=== PATIENT | male | born 1945 | race Caucasian/White ===

== ENCOUNTER 2025-06-10 17:09 | Emergency (ER) | payer MEDICARE, SELFPAY ==
--- OUTSIDE RECORDS SUMMARY | 2025-06-07 09:45 | XMS_ITS | Encounter Summary ---
Author Organization [facility] Address [address] [place] [address] Care Team Providers Care Paving Inspector Name Role Phone Gaurav Valadez MD Primary Care Provider [phone] Reason for Visit * Reason Comments Follow-up Flu Vaccine Encounter Details Date Type Department Care Team (Latest Contact Info) Description 06/07/2025 9:45 AM EST Office Visit Internal Medicine - [place] [address] [facility] [address] [place] [phone] Gaurav Valadez MD 175 [facility] [address] [place] [address] Acquired hypothyroidism (Primary Dx); Stage 2 moderate COPD by GOLD classification (CMS/HCC V24, CMS/HCC V28); Major depression in remission (CMS/HCC V24); Hypercholesterolemia; Need for prophylactic vaccination and inoculation against influenza Social History Tobacco Use Types Packs/Day Years Used Date Smoking Tobacco: Former Cigarettes 1 Q uit: 06/29/1969 Smokeless Tobacco: Never Alcohol Use Standard Drinks/Week Comments Yes 0 (1 standard drink = 0.6 oz pur e alcohol) occasional Sex and Gender Information Value Date Recorded Sex Assigned at Male 02/08/2023 8:46 PM EDT Legal Sex Male 1:26 PM EST Gender Identity Male 02/08/2023 8:46 PM EDT Sexual Orientation Straight 09/21/2024 9: 56 AM EDT documented as of this encounter Last Filed Vital Signs Vital Sign Reading Time Taken Comments Blood Pressure 89/58 06/07/2025 9:40 AM EST Pulse 65 06/07/2025 9:40 AM EST Temperature 35.8 C (96.5 F) 06/07/2025 9:40 AM EST Respiratory Rate - - Oxygen Saturation 95% 06/07/2025 9:40 AM EST Inhaled Oxygen Concentration - - Weight 80.8 kg (178 lb 3.2 oz) 06/07/2025 9:40 A M EST Height 162.6 cm (5' 4 ) 06/07/2025 9:40 AM EST Body Mass Index 30.59 06/07/2025 9:40 AM EST documented in this encounter Ordered Prescriptions Prescription Sig Dispense Quantity Refills Last Filled Start Date End Date clotrimazole-betame thasone (LOTRISONE) 1-0.05 % cream Apply twice a day on the rash for 7 days 45 g 3 06/07/2025 documented in this encounter Progress Notes * Gaurav Valadez MD - 06/07/2025 9:45 AM EST COMPLAINT medication review and testing. IDENTIFIER: Darius Stewart is a 80 y.o. old male. HPI: Hyperlipidemia stable. Hypothyroidism is stable. COPD is under control .anxiety stable. ROS: GENERAL: No malaise, significant weight loss or fever RESPIRATORY: No cough, wheezing or shortness of breath CARDIOVASCULAR: No chest pain, leg swelling or palpitations GI: No abdominal discomfort, blood in stools or black stools PAST MEDICAL HISTORY: Patient Active Problem List Diagnosis Date Noted Shortness of breath 12/17/2021 Heart block 06/25/2021 Dizziness 06/25/2021 Non-recurrent unilateral inguinal hernia without obstruction or gangrene 03/14/2020 Testicular pain, right 03/14/2020 Pure hypercholesterolemia 01/12/2019 Stage 2 moderate COPD by GOLD classification ([facility] V24, [facility] V28) 04/16/2018 Hypoxia 04/16/2018 Former smoker 04/16/2018 Pulmonary fibrosis ([facility] V24, [facility] V28) 04/16/2018 ILD (interstitial lung disease) ([facility] V24, [facility] V28) 04/16/2018 Paraseptal emphysema ([facility] V24, [facility] V28) 04/16/2018 Centrilobular emphysema ([facility] V24, [facility] V28) 04/16/2018 Cataract 03/03/2017 Seasonal allergic rhinitis 01/12/2017 Hypothyroidism 11/20/2016 Major depression in remission ([facility] V24) 11/20/2016 Osteoarthritis 11/20/2016 GERD (gastroesophageal reflux disease) 07/29/2016 Surgical History[1] SOCIAL HISTORY: Social History Tobacco Use Smoking status: Former Current packs/day: 0.00 Average packs/day: 1.0 packs/day Types: Cigarettes Quit date: 06/29/1969 Years since quittin.9 Smokeless tobacco: Never Substance Use Topics Alcohol use: Yes Comment: occasional FAMILY HISTORY: Family History[2] MEDICATIONS DISCONTINUED/REORDERED: There are no discontinued medications. ACTIVE MEDICATIONS: Medications Taking[3] ALLERGIES: Allergies[4] PHYSICAL EXAM: Vitals: 06/07/25 0940 BP: 89/58 Pulse: 65 Temp: 35.8 ??C (96.5 ??F) SpO2: 95% APPEARANCE: Alert and in no acute distress EARS: External ears normal. HEART: RRR with normal S1 and S2, no murmurs LUNG: clear to auscultation LABS: Lab Results Component Value Date WBC 10.6 01/24/2025 HGB 13.9 01/24/2025 HCT 42.7 01/24/2025 MCV 92.6 01/24/2025 Lab Results Component Value Date NA 143 12/02/2024 K 3.9 12/02/2024 CO2 25 12/02/2024 CL 110 12/02/2024 BUN 20 12/02/2024 ALKPHOS 67 12/02/2024 Lab Results Component Value Date TSH 0.41 01/24/2025 Lab Results Component Value Date CHOL 122 12/02/2024 LDL 42 10/21/2023 HDL 68 12/02/2024 TRIG 148 12/02/2024 No components found for: URINELEUK , URINENITR , URINEPRO , URINEPH , URINEBLD , URINESG , URINEKET , URINEBILI , URINEGLUC IMAGING: IMPRESSION: 1. Acquired hypothyroidism CBC and differential Comprehensive metabolic panel Lipid panel with reflex to direct LDL Thyroid stimulating hormone 2. Stage 2 moderate COPD by GOLD classification ([facility] V24, [facility] V28) CBC and differential Comprehensive metabolic panel Lipid panel with reflex to direct LDL Thyroid stimulating hormone 3. Major depression in remission ([facility] V24) CBC and differential Comprehensive metabolic panel Lipid panel with reflex to direct LDL Thyroid stimulating hormone 4. Hypercholesterolemia CBC and differential Comprehensive metabolic panel Lipid panel with reflex to direct LDL Thyroid stimulating hormone 5. Need for prophylactic vaccination and inoculation against influenza CBC and differential Comprehensive metabolic panel Lipid panel with reflex to direct LDL Thyroid stimulating hormone Influenza trivalent, 0.5mL (Fluad) 65yo and older PLAN: Hyperlipidemia stable on Lipitor. COPD stable on Breo inhaler. Hypothyroidism, stable. Anxiety stable on Zoloft. [1] Past Surgical History: Procedure Laterality Date COLONOSCOPY PROCEDURE: HISTORICAL COLONOSCOPY [2] No family history on file. [3] Outpatient Medications Marked as Taking for the 06/07/25 encounter (Office Visit) with Gaurav Valadez MD Medication Sig Dispense Refill aspirin 81 mg chewable tablet TAKE ONE TABLET BY MOUTH EVERY DAY 90 tablet 3 atorvastatin (LIPITOR) 40 mg tablet Take 1 tablet (40 mg total) by mouth 1 (one) time each day. [address] (ENTOCORT EC) 3 mg 24 hr capsule Take 3 mg by mouth daily. Take 3 tablets for one month, then take 2 tablets daily for one month and then take one tablet daily for one month cimetidine (TAGAMET) 400 mg tablet Take 1 tablet (400 mg total) by mouth. fluticasone furoate-vilanteroL (BREO ELLIPTA) 100-25 mcg/dose inhaler Inhale 1 puff by mouth 1 (one) time each day. 1 each 11 ibuprofen (ADVIL,MOTRIN) 600 mg tablet Take 1 tablet (600 mg total) by mouth every 6 (six) hours ifneeded for mild pain. 30 tablet 1 ipratropium-albuteroL (Combivent Respimat) 20-100 mcg/actuation inhaler Inhale 1 puff by mouth every 6 (six) hours if needed for wheezing. 1 each 5 levothyroxine (SYNTHROID, LEVOTHROID) 137 mcg tablet Take 1 tablet (137 mcg total) by mouth 1 (one)time each day. 90 tablet 1 multivitamin with iron Take 1 tablet by mouth 1 (one) time each day. senna-docusate (PERICOLACE) 8.6-50 mg per tablet Take 1 tablet by mouth 1 (one) time each day. 30 each 11 sertraline (ZOLOFT) 25 mg tablet Take 2 tablets (50 mg total) by mouth 1 (one) time each day. 60 tablet 1 [4] No Known Allergies documented in this encounter Plan of Treatment Upcoming Encounters Date Type Department Care Team (Late st Contact Info) Description 07/27/2025 9:30 AM EST Office Visit Pulmonology - [place] 175 [facility] [address] [place] [phone] Wilder Perea MD [address] [place] [phone] 08/17/2025 8:00 AM EST Ancillary Procedure [facility] Cardiology [facility] [address] [facility] [address] [place] [phone] 12/06/2025 9:30 AM EDT Office Visit Internal Medicine - [place] 175 [facility] [address] [place] [phone] Gaurav Valadez MD 175 [facility] [address] [place] [address] 12/07/2025 10:00 AM EDT Office Visit Vascular Surgery - [place] 300 [facility] [address] [place] [phone] Vania Vail PA [address] [place] [phone] 05/03/2026 11:00 AM EST Ancillary Procedure [facility] Cardiology [facility] [address] [facility] [address] [place] [phone] Scheduled Orders Name Type Priority Associated Diagnoses Orde r Schedule CBC and differential Lab Routine Stage 2 moderate COPD by GOLD classification (CMS/HCC V24, CMS/HCC V28) Acquired hypothyroidism Major depression in remission (CMS/HCC V24) Hypercholesterolemia Need for prophylactic vaccination and inoculation against influenza 1 Occurrences starting 06/07/2025 until 06/07/2026 Comprehensive metabolic panel Lab Routine Stage 2 moderate COPD by GOLD classification (CMS/HCC V24, CMS/HCC V28) Acquired hypothyroidism Major depression in remission ([facility] V24) Hypercholesterolemia Need for prophylactic vaccination and inoculation against influenza 1 Occurrences starting 06/07/2025 until 06/07/2026 Lipid panel with reflex to direct LDL Lab Routine Stage 2 moderate COPD by GOLD classification ([facility] V24, [facility] V28) Acquired hypothyroidism Major depression in remission ([facility] V24) Hypercholesterolemia Need for prophylactic vaccination and inoculation against influenza 1 Occurrences starting 06/07/2025 until 06/07/2026 Thyroid stimulating hormone Lab Routine Stage 2 moderate COPD by GOLD classification ([facility] V24, [facility] V28) Acquired hypothyroidism Major depression in remission ([facility] V24) Hypercholesterolemia Need for prophylactic vaccination and inoculation against influenza 1 Occurrences starting 06/07/2025 until 06/07/2026 documented as of this encounter Visit Diagnoses Diagnosis Acquired hypothyroidism- Primary Unspecified hypothyroidism Stage 2 moderate COPD by GOLD classification ([facility] V24, [facility] V28) Major depression in remission ([facility] V24) Major depressive disorder, single episode in full remission Hypercholesterolemia Pure hypercholesterolemia Need for prophylactic vaccination and inoculation against influenza Encounter for adjustment or management of cardiac device documented in this encounter Orders Immunization/Injection Count Last Ordered Date First Ordered Date INFLUENZA TRIVALENT, 0.5ML ( FLUAD) 65YO AND OLDER 1 06/07/2025 documented in this encounter Additional Health Concerns Assessment Noted Time PHQ-9 Depression Total Score: 0 12/03/19 25 11:26 AM EDT A fall risk assessment has been complete d for the patient 12/02/2024 11:23 AM EDT documented as of this encounter Care Teams Paving Inspector Relationship Specialty Start Date End Date Gaurav Valadez MD [address] [place] [id number] PCP - General Internal Medicine 04/16/18 documented as of this encounter
--- OUTSIDE RECORDS SUMMARY | 2025-06-08 11:30 | XMS_ITS | Encounter Summary ---
Author Organization [facility] Address [address] [place] [address] Care Team Providers Care Double Reamer Operator Name Role Phone Gaurav Valadez MD Primary Care Provider [phone] Reason for Referral * Imaging (Routine) - Pending Review Specialty Diagnoses / Procedures Referred By Tory garcia Referred To Contact Diagnoses Claudication (CMS/HCC V24) Procedures Vascular US duplex lower extremity arteries bilateral with MARY Vania Vail PA [address] [place] [address] Phone: tel: fax: [facility] Referral ID Status Reason Start Date Expiration Date V isits Requested Visits Authorized [id number] Pending Review 06/08/2025 06/08/2026 1 1 Reason for Visit * Reason Comments Varicose Veins Encounter Details Date Type Department Care Team (Late st Contact Info) Description 06/08/2025 11:30 AM EST Office Visit Vascular Surgery - [place] [address] [place] [address] Vania Vail PA [address] [place] [address] Varicose veins of bilateral lower extremities with pain (Primary Dx); Claudication (CMS/HCC V24) Social History Tobacco Use Types Packs/Day Years [...] Sign Reading Time Taken Comments Blood Pressure 120/80 06/08/2025 11:18 AM EST Pulse 92 06/08/2025 11:18 AM EST Temperature - - Respiratory Rate 16 06/08/2025 11:18 AM EST Oxygen Saturation - - Inhaled Oxygen Concentration - - Weight 82.6 kg (182 lb) 06/08/2025 11:18 AM EST Height 162.6 cm (5' 4 ) 06/08/2025 11:18 AM EST Body Mass Index 31.24 06/08/2025 11:18 AM EST documented in this encounter Progress Notes * NILE Chappell - 06/08/2025 11:30 AM EST PATIENT: Francisco Javier Stewart ENCOUNTER: 06/08/2025 EMRN: [id number] : 1945 PCP: Gaurav Valadez MD CHIEF COMPLAINT: Varicose Veins HPI: This 80 y.o. male with history of COPD/ILD/pulmonary fibrosis, hypothyroidism, heart block s/p pacemaker placement, former smoker presents for follow up varicose veins. 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 Most recent carotid duplex from 2023 revealed no hemodynamically significant stenosis. Patient was last seen in August 2024. He has varicose veins on bilateral legs. No swelling. No history of venous ulcers. He has a history of chronic back pain and remote history of lumbar spine surgery. He is on aspirin and a statin. He is a former smoker. Patient is here today to review venous reflux studies. Patient was prescribed compression stockingsat previous visit, however he has been unable to get the stockings on and finds them too tight. He was given a different pair by his 's friend that seem to work better. He reports that when he goes up stairs or walks at an incline, his legs become very fatigued. He denies any pain within the thigh or calf. Symptoms do not occur on flat surface. He denies pain in toes at rest, ulcers or gangrene. PAST MEDICAL HISTORY: Problem List[1] PAST SURGICAL HISTORY: Surgical History[2] MEDICATIONS: Medications Taking[3] ALLERGIES: Current Allergies[4] SOCIAL HISTORY: Social History[5] FAMILY HISTORY: Family History[6] ROS: GENERAL: No malaise, significant weight loss or fever NECK: No lumps, goiter, pain or significant neck swelling RESPIRATORY: No cough, wheezing or shortness of breath CARDIAC: No chest pain or palpitations GI: No abdominal discomfort MUSCULOSKELETAL: SEE HPI SKIN: No lesions, rash or itching NEURO: No persistent headache, syncope, seizures, weakness or numbness VASCULAR: SEE HPI PHYSICAL EXAM: Vitals: 06/08/25 1118 BP: 120/80 Pulse: 92 Resp: 16 Weight: 82.6 kg (182 lb) Height: 1.626 m (64 ) General: Alert and oriented x 3, no acute distress, well-nourished HEENT: Normocephalic atraumatic Neck: No JVD Chest: Respiratory effort normal Cardiac: Regular rate rhythm Abdomen: Soft, nontender, nondistended, no widened aortic pulse Extremities: -Right upper extremity: 2+ radial artery pulses palpable. -Left upper extremity: 2+ radial artery pulses palpable. -Right lower extremity: Femoral artery pulse palpable. No palpable popliteal artery pulse. 1+ DP pulse palpable. No PT pulse palpable. No ulcers or gangrene. Varicosities present on calf. No hyperpigmentation. No induration or inflammation. No edema. -Left lower extremity: Femoral artery pulse palpable. No palpable popliteal artery pulse. 1+ DP pulse palpable. No PT pulse palpable. No ulcers or gangrene. Varicosities present on calf. No hyperpigmentation. No induration or inflammation. No edema. Integumentary: No wounds Neuro: Grossly intact DIAGNOSTIC TESTING: Bilateral lower extremity venous reflux, 05/16/25: RIGHT: 1. There is no evidence of a DVT in the right lower extremity 2. The femoral vein, and SSV are competent 3. The GSV has clinically significant reflux as described below. 4. There is a branch of the GSV with clinically significant refluxis described below 5. There is evidence of nonsignificant reflux in the popliteal vein as described below. 6. Incidental finding: There is evidence of an avascular structure in the right popliteal fossa measuring 3.42 x 0.90 x 3.09cm, suggestive of a Garrido's cyst. LEFT: 1. There is no evidence of a DVT in the left lower extremity. 2. The SFJ, and SSV are competent 3. There are multiple branches of the GSV with clinically significant reflux as described below. 4. There is evidence of nonsignificant reflux in the femoral vein and popliteal vein. Result History Order Result History Report Procedure Details A amaya scale, color and doppler analysis ultrasound was performed. During the study longitudinal and transverse views were obtained. Pulsed wave doppler was performed. Lower Venous Extremity Findings Right Lower Venous No evidence of deep vein thrombosis in the common femoral, deep femoral, proximal femoral, mid femoral, distal femoral, popliteal, greater saphenous, small saphenous, posterior tibial and peroneal veins of the right leg. The vessels showed compressibility. Interrogation showed phasic and spontaneous Doppler signals. There is evidence of a Garrido's cyst in the popliteal fossa measuring 3.42 x 0.90 x 3.09cm. Right Venous Insufficiency Duplex The exam was performed with the patient in reverse Trendelenburg. Refluxing right greater saphenous branch: 0.26cm diameter lower thigh= 4400ms Left Lower Venous No evidence of deep vein thrombosis in the common femoral, deep femoral, proximal femoral, mid femoral, distal femoral, popliteal, greater saphenous, posterior tibial and peroneal veins of the left leg. The vessels showed compressibility. Interrogation showed phasic and spontaneous Doppler signals. Small saphenous vein was not visualized. Left Venous Insufficiency Duplex The exam was performed with the patient in reverse trendelenburg. Refluxing left greater saphenous branches: 0.29cm diameter mid thigh= 4280ms 0.26cm diameter lower thigh= 4330ms Right Lower Venous Measurements Vein Diam Reflux Time GSV Junction 0.53 cm 4,378 ms GSV Thigh Prox 0.38 cm 4,361 ms GSV Thigh Mid 0.37 cm 4,395 ms GSV At Knee 0.3 cm 322 ms GSV Below Knee Prox 0.23 cm GSV Below Knee Dist 0.18 cm SSV Prox 0.13 cm SSV Mid 0.1 cm Pop 578 ms Left Lower Venous Measurements Vein Diam Reflux Time GSV Junction 0.44 cm GSV Thigh Prox 0.4 cm GSV Thigh Mid 0.29 cm GSV At Knee 0.21 cm GSV Below Knee Prox 0.13 cm GSV Below Knee Dist 0.15 cm 211 ms FV Mid 511 ms Pop 561 ms INDICATION: Atherosclerotic disease FINDINGS: Duplex and color images are obtained of the extracranial carotid arterial systems bilaterally. July 04, 2023 No significant atherosclerotic plaque. Normal velocities and waveforms noted bilaterally. Peak systolic velocities are as follows: Right CCA 66 cm/sec Right ICA 75 cm/sec Right ECA 91 cm/sec Ratio of right ICA/CCA 1.1 Left CCA 60 cm/sec Left ICA 75 cm/sec Left ECA 88 cm/sec Ratio of left ICA/CCA 1.2 There are normal end diastolic velocities bilaterally with antegrade flow in both vertebral arteries. IMPRESSION: No evidence of hemodynamically significant stenosis. No significant change from the prior study. -------- FINAL REPORT -------- Dictated By: Yanet Pelayo Dictated Date: 06/23/2024 14:16 ET Assigned Physician: Yanet Pelayo Reviewed and Electronically Signed By: Yanet Pelayo Signed Date: 06/23/2024 14:19 ET Workstation ID: [id number] Transcribed By: Self Edit Transcribed Date: 06/23/2024 14:16 ET [facility] Diagnostic Imaging Department [address] [place] [address] Patient: JENNFRANCISCO JAVIER BlackwellB./Age/Sex: 1945 - 78 - M Unit#: [id number] Location/Status: [facility] CLI Mnemonic/Ordering Site: [facility] Ordering Physician: YULISSA JEFF MD US Lower Extrem Art Scan Bilat - 07/03/231002 Report Status:Signed INDICATION: Bilateral lower extremity pain, peripheral arterial disease TECHNIQUE: Arterial duplex imaging obtained of both lower extremities. COMPARISON: None Right leg: Common femoral artery: Normal velocities and waveform. Superficial femoral artery: Normal velocities and waveform. Popliteal artery: Normal velocities and waveform. Posterior tibial artery: Normal velocities and waveform. Anterior tibial artery: Normal velocities and waveform. Left leg: Common femoral artery: Normal velocities and waveform. Superficial femoral artery: Normal velocities and waveform. Popliteal artery: Normal velocities and waveform.. Posterior tibial artery: Normal velocities and waveform. Anterior tibial artery: Normal velocities and waveform. IMPRESSION: Right leg: Normal study. Left leg: Normal study. Dictating Physician: YANET PELAYO MD Electronically Signed by: YANET PELAYO MD Dic Date/Time: 07/06/23 1600 Sign date/Time: 07/06/23 1601 [facility] Diagnostic Imaging Department [address] [place] [address] Patient: FRANCISCO JAVIER STEWART D.O.B./Age/Sex: 1945 - 78 - M Unit#: [id number] Location/Status: [facility]/REG CLI Mnemonic/Ordering Site: [facility] Ordering Physician: YULISSA JEFF MD US Carotid Duplex Bilat Complt - 07/03/231003 Report Status:Signed HISTORY: Dizziness. Known peripheral vascular disease. COMPARISON: 10/16/18 TECHNIQUE: Duplex and color Doppler imaging of the bilateral extracranial carotid arterial systems was performed. FINDINGS: Right: Amaya scale images show diffuse intimal thickening and moderate calcified plaque at the level of the carotid bulb. The peak systolic velocity is 95.6 cm/sec in the proximal internal carotid. Right CCA 64.5 cm/sec Right ECA 85.3 cm/sec Ratio of right ICA/CCA 1.5 Left: Amaya scale images show diffuse intimal thickening and moderate calcified and noncalcified plaque in the carotid bulb. The peak systolic velocity is 70.2 cm/sec in the proximal internal carotid. Left CCA 67.1 cm/sec Left ECA 122.6 cm/sec Ratio of left ICA/CCA 1.0 There are normal end diastolic velocities bilaterally with antegrade flow in both vertebral arteries. IMPRESSION: 1. No evidence of a hemodynamically significant stenosis is seen. 2. Patent, antegrade vertebral arteries. No significant change. Measurement of carotid stenosis is based on velocity parameters that correlate the residual internal carotid diameter with [place] Symptomatic Carotid Endarterectomy Trial (NASCET)-based stenosis levels and velocity criteria are extrapolated from diameter data as defined by the Society of Radiologists in Ultrasound Consensus Conference Radiology 2003; 229;340-346.? [id number], 3100F Dictating Physician: MAURI BEVERLY MD Electronically Signed by: MAURI BEVERLY MD Dic Date/Time: 07/06/23 1043 Sign date/Time: 07/06/23 1047 I independently reviewed the studies along with the images. ASSESSMENT: 1. Varicose veins of bilateral lower extremities with pain 2. Claudication (CMS/HCC V24) PLAN: 80 y.o. male with bilateral lower extremity varicose veins. We reviewed venous reflux studies. No DVT. There is insignificant reflux within left femoral, popliteal and GSV below knee distal. On the right, there is reflux within popliteal, GSV junction and multiple levels of GSV. Patient does not feel that his symptoms are lifestyle limiting, therefore will defer intervention. Recommend continued conservative management with compression stockings, leg elevation, daily exercise/movement. In regards to patient's report of leg fatigue with walking up stairs or on an incline, I will order repeat bilateral lower extremity arterial duplex studies. Bilateral DP pulses are 1+ on exam. His prior arterial duplex from June 2023 was normal, however we will evaluate for any change. His symptoms could be neurogenic in nature. We will have the patient follow up once imaging has been completed. In regards to his previous diagnosis of carotid artery arterial sclerosis, his carotid duplex from 2023 was without any significant stenosis. No intervention warranted. Patient to continue aspirin and a statin. We discussed the natural pathophysiology of venous disease. I spent 32 minutes in an encounter withthis patient, including time spent with patient, chart review, reviewing and ordering diagnostic studies, and documentation. [1] Patient Active Problem List Diagnosis Heart block Hypothyroidism Pure hypercholesterolemia GERD (gastroesophageal reflux disease) Non-recurrent unilateral inguinal hernia without obstruction or gangrene Testicular pain, right Major depression in remission (CMS/HCC V24) Osteoarthritis Seasonal allergic rhinitis Cataract Stage 2 moderate COPD by GOLD classification (CMS/HCC V24, CMS/HCC V28) Hypoxia Former smoker Pulmonary fibrosis (CMS/HCC V24, CMS/HCC V28) ILD (interstitial lung disease) (CMS/HCC V24, CMS/HCC V28) Paraseptal emphysema (CMS/HCC V24, CMS/HCC V28) Centrilobular emphysema (CMS/HCC V24, CMS/HCC V28) Dizziness Shortness of breath [2] Past Surgical History: Procedure Laterality Date COLONOSCOPY PROCEDURE: HISTORICAL COLONOSCOPY [3] Outpatient Medications Marked as Taking for the 06/08/25 encounter (Office Visit) with NILE Chappell Medication Sig Dispense Refill aspirin 81 mg [...] 1 tablet (400 mg total) by mouth. clotrimazole-betamethasone (LOTRISONE) 1-0.05 % cream Apply twice a day on the rash for 7 days 45 g3 fluticasone furoate-vilanteroL (BREO ELLIPTA) 100-25 mcg/dose inhaler [...] 60 tablet 1 [4] No Known Allergies [5] Social History Tobacco Use Smoking status: Former Current packs/day: 0.00 Average packs/day: 1.0 packs/day Types: Cigarettes Quit date: 06/29/1969 Years since quittin.9 Smokeless tobacco: Never Substance Use Topics Alcohol use: Yes Comment: occasional Drug use: No [6] No family history on file. documented in this encounter Plan of Treatment Upcoming Encounters Date Type Department Care Team (Late st Contact Info) Description 07/27/2025 9:30 AM EST Office Visit Pulmonology - [place] [address] [facility] [address] [place] [phone] Wilder Perea MD [address] [place] [address] 08/17/2025 8:00 AM EST Ancillary Procedure [facility] - [facility] [address] [facility] [address] [place] [address] 12/06/2025 9:30 AM EDT Office Visit Internal Medicine - [place] [address] [facility] [address] [place] [address] Gaurav Valadez MD [address] [facility] [address] [place] [address] 12/07/2025 10:00 AM EDT Office Visit Vascular Surgery - [place] [address] [place] [address] Vania Vail PA [address] [place] [address] 05/03/2026 11:00 AM EST Ancillary Procedure [facility] - [facility] [address] [facility] [address] [place] [address] Scheduled Orders Name Type Priority Associated Diagnoses Orde r Schedule Vascular US duplex lower extremity arteries bilateral with MARY Vascular Ultrasound Routine Claudication ([facility] V24) Expected: 09/06/2025, Expires: 06/08/2026 documented as of this encounter Visit Diagnoses Diagnosis Varicose veins of bilateral lower extremities with pain- Primary Claudication (CMS/[facility] V24) Unspecified peripheral vascular disease Encounter for adjustment or management of cardiac device documented in this encounter Additional Health Concerns Assessment Noted Time PHQ-9 Depression Total Score: 0 12/03/19 25 11:26 AM EDT A fall risk assessment has been complete d for the patient 12/02/2024 11:23 AM EDT documented as of this encounter Care Teams Double Reamer Operator Relationship Specialty Start Date End Date Gaurav Valadez MD [address] [facility] [address] [place] [address] PCP - General Internal Medicine 04/16/18 documented as of this encounter
--- NOTE | ~2025-06-10 | XR_ITS ---
CLINICAL HISTORY: weakness and cough 1 view chest x-ray. Comparison: None Findings: No consolidation or effusion. Cardiac and mediastinal contours appear unremarkable. Cardiac pacer hardware is present, lead tips overlying right atrium and right ventricle. Bones unremarkable. Impression: 1. No acute pulmonary disease. This document has been electronically signed by: Rhett Beasley MD on 06/10/2025 17:58:26
[2025-06-10 17:16] VITALS: BP 119/69; PULSE 87; RESP 16; TEMP 36.7; O2SAT 93; BMI 30.5
--- NOTE | 2025-06-10 17:17 | ED.WEAKNESS ---
HPI - Weakness General Chief complaint: Weakness Stated complaint: didn't eat yesterday/too weak today to stand Time Seen by Provider: 06/10/25 19:17 History of Present Illness HPI Narrative: Patient is an 80-year-old male complaining today with having 2 day history of coughing upper respiratory symptoms generalized malaise weakness. Unable to walk well due to fatigue. Feels very tired. Cough nonproductive in nature no pain on urination. No history of congestive heart failure. No nausea no vomiting but poor appetite. Related Data Allergies Allergy/AdvReac Type Severity Reaction Status Date / Time No Known Allergies Allergy Verified 06/10/25 17:20 Review of Systems Review of Systems: Positive coughing congestion upper respiratory Yes all other systems are reviewed and are negative [facility] Past Medical History Attestation statement: The following information was validated with the patient. Social History Social History Smoked in Last 30 Days: No Use of substances other than those prescribed or required for medical reasons: No Advance Directives: No Advance Directives Information Provided: No Do you have a plan to hurt others: No Plan Physical Exam Exam: Exam: Appearance: Alert. Oriented X3. No acute distress. Eyes: Pupils equal, round and reactive to light. ENT: Pharynx normal. Neck: Normal inspection. Neck supple. No lymph nodes noted. No crepitus CVS: Normal heart rate and rhythm. Pulses normal. Normal S1 and S2 Respiratory: No respiratory distress. Breath sounds normal. No Wheezing. No rales Abdomen: Soft and nontender. No rigidity. No distention. good BS x4 Skin: Skin warm and dry. Normal skin color. Normal skin turgor. Extremities: No lower extremity edema. Neurovascular intact to all extremities. No Lacerations. No Rash Neuro: Oriented X 3. No motor deficit. No sensory deficit. Moving all extermities. No slurred speech Vital Signs: Vital Signs: Last Vital Signs Temp 99.3 F 06/10/25 23:51 Pulse 94 06/10/25 23:51 Resp 19 06/10/25 23:51 BP 145/65 H 06/10/25 23:51 Pulse Ox 92 06/10/25 23:51 O2 Del Method Room Air 06/10/25 23:51 BMI result Body Mass Index 30.5 Course Course Course Narrative: This is a RME preformed in triage by Hannah Medrano PA-C. Date: 06/10/25, time 519 pm. Patient presents with weakness and n/v. Last drink: coffee this morning, Last Meal: lunch, hamburger from [employer]. Dry heaves with nausea since yesterday. Decreased appetite. Here with . + cough, sore throat since yesterday. Feels so weak he cannot stand. No assistive devices. PE: can stand and pivot on own to check weight. Darius presents with new-onset inability to ambulate that began the afternoon of the (yesterday). He reports no prior similar episodes and denies any recent falls. He notes decreased appetite??I just stopped eating??and says he does not feel hungry. He endorses nausea with dry heaves (clear fluid) but no true emesis. Last oral intake was lunch today (hamburger from [employer]) which he was able to keep down. He reports persistent cough that started yesterday but denies sore throat or nasal congestion. Last urination was just before the car ride to clinic, producing only a small amount. He is not drinking fluids well (last drink this morning). He has chronic hip pain. Past medical history is notable for COPD and a ?heart condition? (unspecified). He uses no assistive devices at baseline. He lives with one other person. Review of Systems: ? Constitutional: decreased appetite, no hunger. ? Respiratory: persistent cough since yesterday; denies nasal congestion, denies sore throat. ? Gastrointestinal: nausea, dry heaves; no vomiting of food contents; last meal retained. ? Genitourinary: decreased urine output (small amount just before car ride). ? Musculoskeletal: inability to ambulate since yesterday; chronic hip pain. ? Neurologic: no recent falls reported. Work UP:?Sars/FLU and basic labs Will defer full ROS and PE to treating provider. Patient will continued to be monitored in the interim. Medications Administered Discontinued Medications Generic Name Dose Route Start Last Admin Trade Name Freq PRN Reason Stop Dose Admin Sodium Chloride 1,000 mls @ 999 mls/hr 06/10/25 22:00 06/10/25 23:40 Ns IV 06/10/25 23:00 Infused .Q1H1M MARK Infusion Medical Decision Making Medical Decision Making [facility] Narrative: 80 years old presents today with having coughing generalized malaise weakness. Not eating not drinking well. COVID test came back positive give a L of IV fluids patient now ambulating well. No acute distress. O2 sats 95% on room air. My interpretation patient's chest x-ray is grossly negative for infiltrate. I reviewed radiology's reading. Patient is white count is 9.2 hemoglobin 15.5 there is no evidence for anemia. Patient's electrolytes showed normal LFTs. Urine showed no signs of infection COVID flu RSV positive for COVID only. Patient to be discharged home close follow-up on an outpatient basis given normal O2 sat patient is on multitude of medication symptoms been ongoing for about 2 days. Pros and cons of Paxlovid discussed. Patient is previously vaccinated felt the risk is low will discharge home. Differential Diagnosis Differential Diagnoses: The differential diagnosis associated with the presentation includes COVID, pneumonia Lab Data [facility] Lab Attestation statement: I reviewed the patient's lab results. 06/10/25 17:58 06/10/25 17:58 Labs: Lab Results 06/10/25 06/10/25 06/10/25 Range/Units 17:58 21:30 22:39 WBC 9.2 (4.8-10.8) X10*3/uL RBC 5.05 (4.60-5.80) X10*6/uL Hgb 15.5 (14.0-18.0) g/dl Hct 46.2 (42.0-52.0) % MCV 91.5 (80.0-98.0) fL MCH 30.7 (27.0-33.0) pg MCHC 33.5 (31.0-36.0) g/dl RDW 13.8 (11.0-16.0) % Plt Count 231 (160-400) X10*3/uL MPV 9.9 (9.4-12.4) fL Immature Gran % (Auto) 0.3 (0.0-0.4) % Neut % (Auto) 84.2 H (45-73) % Lymph % (Auto) 5.0 L (20-40) % [place] % (Auto) 9.5 (2-11) % Eos % (Auto) 0.7 (0-4) % Baso % (Auto) 0.3 (0-2) % Lymph # (Auto) 0.5 L (1.2-4.9) X10*3/uL [place] # (Auto) 0.9 (0.1-1.2) X10*3/uL Eos # (Auto) 0.1 (0.0-0.4) X10*3/uL Baso # (Auto) 0.0 (0.0-0.2) X10*3/uL Abs Immat Gran (auto) 0.03 (0.00-0.03) X10*3/uL Absolute Neuts (auto) 7.8 (2.0-8.3) x10*3/uL Absolute Nucleated RBC 0.000 (0.0-0.012) X10*3/uL Nucleated RBC % (auto) 0.0 (0.0-0.2) /100WBC Sodium 141 (135-145) mmol/L Potassium 3.5 (3.3-5.1) mmol/L Chloride 107 (96-108) mmol/L Carbon Dioxide 22 (22-29) mmol/L Anion Gap 16 (12-20) BUN 17 H (9-16) mg/dL Creatinine 1.24 (0.5-1.4) mg/dL Estim Creat Clear Calc 44.0 Estimated GFR 56 POC Glucose 86 (60-115) mg/dL Random Glucose 98 (60-115) mg/dL Calcium 9.5 (8.4-10.2) mg/dL Magnesium 1.9 (1.6-2.6) mg/dL Total Bilirubin 0.6 (0.0-1.0) mg/dL AST 24 (5-37) U/L ALT 25 (0-40) U/L Alkaline Phosphatase 62 (39-117) U/L Total Protein 6.9 (6.5-8.0) g/dL Albumin 4.6 (3.5-5.0) g/dL Lipase 15 (8-78) U/L TSH 0.61 (0.32-4.0) uIU/mL Urine Color Yellow Urine Appearance Cloudy Urine pH 5.5 (5.0-9.0) Ur Specific [place] 1.025 (1.005-1.025) Urine Protein Trace (Neg-Trace) mg/dL Urine Glucose (UA) Negative (Negative) mg/dL Urine Ketones Trace (Negative) mg/dL Urine Blood Negative (Negative) Urine Nitrite Negative (Negative) Ur Leukocyte Esterase Negative (Negative) Influenza Type A (PCR) NEGATIVE (Negative) Influenza Type B (PCR) NEGATIVE (Negative) RSV RNA Qual (PCR) NEGATIVE (Negative) SARS-CoV-2 RNA (RT-PCR) POSITIVE A (Negative) Independent Interpretation I performed an independent interpretation of an: EKG (Sinus heart rate is 90 there is a right bundle-branch block.) and Plain X-Ray (Chest x-ray grossly negative) Radiology Impression Discussion of test interpretation with radiology: I have reviewed the radiologist's reading. Independent Historian Clinical information obtained from an independent historian. History obtained from or confirmed by: Spouse External Record Review External record reviewed: Inpatient record Chronic Conditions Patient?s care impacted by: Hypertension Social Determinants Patient?s care significantly limited by Social Determinants of Health including: Problems related to primary support group Discharge Plan Discharge Clinical Impression: Dehydration, COVID Patient Disposition: Home, Self-Care Instructions: COVID-19 (Coronavirus Disease 2019) (ED), Dehydration (ED) Referrals: Gaurav Valadez MD [Primary Care Provider, Internal Medicine] - 06/14/25 Print Language: Mongolian
--- NOTE | 2025-06-10 17:21 | ECG_ITS ---
Test Reason : WEAKNESS Blood Pressure : */* mmHG Vent. Rate : 88 BPM Atrial Rate : 88 BPM P-R Int : 218 ms QRS Dur : 120 ms QT Int : 380 ms P-R-T Axes : 40 -47 39 degrees QTcB Int : 459 ms Sinus rhythm with 1st degree A-V block Right bundle branch block Left anterior fascicular block Bifascicular block Abnormal ECG No previous ECGs available Referred By: Hannah Medrano Electronically Signed By: RYAN PAPPAS MD
[2025-06-10 18:05] LABS: MANUAL DIFF FLAG NO
[2025-06-10 18:07] LABS: Hematocrit 46.2 % (42.0-52.0); Hemoglobin 15.5 g/dl (14.0-18.0); Imm Gran Abs Auto 0.03 X10*3/uL (0.00-0.03); Imm Gran Pct Auto 0.3 % (0.0-0.4); Lymphocytes Absolute Auto 0.5 X10*3/uL (1.2-4.9); Mean Corpuscular HGB Conc 33.5 g/dl (31.0-36.0); Mean Corpuscular Hemoglobin 30.7 pg (27.0-33.0); Mean Corpuscular Volume 91.5 fL (80.0-98.0); NRBC Abs Auto 0.000 X10*3/uL (0.0-0.012); NRBC Pct Auto 0.0 /100WBC (0.0-0.2); Platelet Count 231 X10*3/uL (160-400); Red Blood Count 5.05 X10*6/uL (4.60-5.80); White Blood Count 9.2 X10*3/uL (4.8-10.8)
[2025-06-10 18:23] LABS: Alanine Aminotransferase 25 U/L (0-40); Albumin Level 4.6 g/dL (3.5-5.0); Alkaline Phosphatase 62 U/L (39-117); Anion Gap 16 (12-20); Aspartate Amino Transferase 24 U/L (5-37); Blood Urea Nitrogen 17 mg/dL (9-16); Calcium 9.5 mg/dL (8.4-10.2); Carbon Dioxide 22 mmol/L (22-29); Chloride 107 mmol/L (96-108); Creatinine Clr Calc Pharmacy 44.0; Estimated Glomerular Filt Rate 56; Lipase 15 U/L (8-78); Magnesium 1.9 mg/dL (1.6-2.6); Potassium 3.5 mmol/L (3.3-5.1); Sodium 141 mmol/L (135-145); Total Protein 6.9 g/dL (6.5-8.0)
[2025-06-10 18:46] LABS: Resp Syncy Virus RNA Qual PCR NEGATIVE (Negative); SARS COV2 PCR INHOUSE POSITIVE (Negative)
--- NOTE | 2025-06-10 21:22 | PC.NURSE ---
pt report increased weakness and loss of appetite over the last few days. pt feels his legs are unable to hold him up. He has made attempts to get up and he is unable to do so. Lives at home with . Pt denies anyone being sick at home, 99.1 oral temp, HR 82. at beside.
[2025-06-10 21:24] VITALS: BP 118/56; PULSE 82; RESP 18; TEMP 37.3; O2SAT 93
--- OUTSIDE RECORDS SUMMARY | 2025-06-10 21:32 | XMS_ITS | Clinical Summary ---
Author Organization [employer] Address [address] [place] [address] [address] [place] [address] Care Team Providers Care Press Tender Name Role Phone Unavailable Primary Care Provider Unavailabl e Allergies No known active allergies Medications levothyroxine (Synthroid, Levoxyl) 150 MCG tablet Take by mouth before breakfast. Active sertraline (Zoloft) 25 MG tablet Take by mouth in the morning. Active atorvastatin (Lipitor) 40 MG tablet Take 40 mg by mouth in the morning. Active Fluticasone Furoate-Vilante rol (Breo Ellipta) 100-25 MCG/ACT aerosol powder Inhale 100 mg. Activ e ipratropium-alb uterol (Combivent Respimat) 20-100 MCG/ACT inhaler Inhale 1 puff in the morning, at noon, in the evening, and at bedtime. Active cimetidine (Tagamet) 400 MG tablet Take 400 mg by mouth 2 times daily. Active ibuprofen 600 MG tablet Take by mouth. Activ e BABY ASPIRIN PO Take 81 mg by mouth. Active acetaminophen (Tylenol) 500 MG tablet Take 1 tablet (500 mg) by mouth every 6 (six) hours if needed for mild pain for up to 20 doses. 20 tablet 4 Active chlorhexidine (Peridex) 0.12 % solution Swish 15 mL morning and night for 1 minute. Spit, do not swallow. Do not eat or drink for 30 minutes following use. 473 mL 4 Active Active Problems No known active problems Immunizations Immunization Administration Dates Next Due Influenza High-dose Quadrivalent Preservative Fr ee 03/27/2021,04/11/2020 Influenza, High Dose Seasonal, Preservative Free 05/21/2022,05/23/2019 Influenza, trivalent, adjuvanted 04/13/2018 Pneumococcal Conjugate PCV 20 10/23/2022 Pneumococcal Polysaccharide PPSV23 01/12/2018 Zoster, Recombinant 10/23/2022,08/22/2022 Social History Tobacco Use Types Packs/Day Years Used Date Smoking Tobacco: Unknown Tobacco Cessation:Counseling Given: Not Answered Sex and Gender Information Value Date Recorded Sex Assigned at Male 04/28/2022 10:25 AM EDT Legal Sex Male 10:25 AM EDT Gender Identity Male 04/28/2022 10:25 AM EDT Sexual Orientation Straight 04/28/2022 10 :25 AM EDT Last Filed Vital Signs Vital Sign Reading Time Taken Comments Blood Pressure 136/72 04/27/2024 11:28 AM EDT Pulse 65 03/08/2024 8:58 AM EDT Temperature - - Respiratory Rate - - Oxygen Saturation - - Inhaled Oxygen Concentration - - Weight - - Height - - Body Mass Index - - Plan of Treatment Health Maintenance Due Date Last Done Comments Dental X-Ray: [facility] 1943 Depression Screening 1943 Lipid Panel 1943 SDOH Screening 1943 Alcohol/Substance Use Screening 1955 DTaP/Tdap/Td Vaccines (1 - Tdap) 1962 RSV Patients and Patients Aged 60 years or older (1 - 1-dose 75+ series) 2018 Dental Prophylaxis 09/06/2024 03/08/2024 Dental Oral Exam 09/13/2024 03/15/2024 COVID-19 Vaccine ( season) 2025 03/27/2021, 08/30/2020, 08/09/2020 Influenza Vaccine (#1) 2025 , 04/21/2023, 05/21/2022, Additional history exists Tobacco Screening 08/18/2025 08/18/2024 Dental X-Ray: Full Mouth 03/16/2027 03/15/2024 Pneumococcal Vaccine: 50+ Years Completed 10/23/2022, 01/12/2018 Zoster Vaccines Completed 10/23/2022, 08/22/2022 HIB Vaccines Aged Out No longer eligi ble based on patient's age to complete this topic HPV Vaccines Aged Out No longer eligi ble based on patient's age to complete this topic Hepatitis A Vaccines Aged Out No long er eligible based on patient's age to complete this topic Hepatitis B Vaccines Aged Out No long er eligible based on patient's age to complete this topic IPV Vaccines Aged Out No longer eligi ble based on patient's age to complete this topic Meningococcal B Vaccine Aged Out No l onger eligible based on patient's age to complete this topic Meningococcal Vaccine Aged Out No cheikh shakeel eligible based on patient's age to complete this topic RSV under 20 months Aged Out No longe r eligible based on patient's age to complete this topic Rotavirus Vaccines Aged Out No longer eligible based on patient's age to complete this topic Procedures Procedure Name Priority Date/Time Associated Diagnosis Comments PANORAMIC RADIOGRAPHIC IMAGE Routine 03/15/2024 9:00 AM EDT PERIODIC ORAL EVALUATION - ESTABLISHED PATIENT Routine 03/15/2024 9:00 AM EDT PROPHYLAXIS - ADULT Routine 03/08/2024 9 :00 AM EDT from Last 3 Months or Most Recently Relevant to Health [place] [id number] FOR[facility]LY [facility] D[facility] - HSN FULL (MEDICAID)
--- OUTSIDE RECORDS SUMMARY | 2025-06-10 21:32 | XMS_ITS | Encounter Summary ---
Author Organization [employer] Address [address] [place] [address] [address], [place] [address] Care Team Providers Care Health Researcher Name Role Phone Unavailable Primary Care Provider Unavailabl e Reason for Visit * Reason Onset Date Comments medication 12/03/2022 Encounter Details Date Type Department Care Team (Late st Contact Info) Description 12/03/2022 Telephone [facility] [address], [place] [id number] Arielle Burnett [facility] [address] [place], [place] [phone] medication Social History Tobacco Use Types Packs/Day Years Used Date Smoking Tobacco: Unknown Sex and Gender Information Value Date Recorded Sex Assigned at Male 04/28/2022 10:25 AM EDT Legal Sex Male 10:25 AM EDT Gender Identity Male 04/28/2022 10:25 AM EDT Sexual Orientation Straight 04/28/2022 10 :25 AM EDT COVID-19 Exposure Response Date Recorded In the last 10 days, have yo u been in contact with someone who was confirmed or suspected to have Coronavirus/COVID-19? No / Unsure 12/04/2022 2:40 PM EDT documented as of this encounter Miscellaneous Notes * Telephone Encounter - Brittany Rios - 12/03/2022 3:17 PM EDT Patient called in stating that he needs an antibiotic for an infection that he has in his gums. Mentioned to patient that he needs to be seen to get a script but he stated that the last time he was here it was the same infection and he just wasn't the script sent int. I told patient that I would make the request and if office sees that he needs to come in they will reach out to him. Patient understood DR documented in this encounter Plan of Treatment Not on file documented as of this encounter Visit Diagnoses Not on filedocumented in this encounter
--- OUTSIDE RECORDS SUMMARY | 2025-06-10 21:32 | XMS_ITS | Clinical Summary ---
Author Organization [facility] Address [address] [place] [address] Phone Care Team Providers Care Product Expert Name Role Phone Gaurav Valadez MD Primary Care Provider [phone] Allergies No known active allergies Medications cimetidine (TAGAMET) 400 mg tablet Take 1 tablet (400 mg total) by mouth. Active multivitamin with iron Take 1 tablet by mouth 1 (one) time each day. [address] (ENTOCORT EC) 3 mg 24 hr capsule Take 3 mg by mouth daily. Take 3 tablets for one month, then take 2 tablets daily for one month and then take one tablet daily for one month 4 Active aspirin 81 mg chewable tablet TAKE ONE TABLET BY MOUTH EVERY DAY 90 tablet 3 4 Active senna-docusate (PERICOLACE) 8.6-50 mg per tablet Take 1 tablet by mouth 1 (one) time each day. 30 each 5 12/03/19 26 Active levothyroxine (SYNTHROID, LEVOTHROID) 137 mcg tablet Take 1 tablet (137 mcg total) by mouth 1 (one) time each day. 90 tablet 1 5 Active fluticasone furoate-vilanter oL (BREO ELLIPTA) 100-25 mcg/dose inhaler Inhale 1 puff by mouth 1 (one) time each day. 1 each 5 03/13/20 26 Active ibuprofen (ADVIL,MOTRIN) 600 mg tablet Take 1 tablet (600 mg total) by mouth every 6 (six) hours if needed for mild pain. 30 tablet 1 5 Active atorvastatin (LIPITOR) 40 mg tablet Take 1 tablet (40 mg total) by mouth 1 (one) time each day. 90 tablet 3 5 Active ipratropium-albu teroL (Combivent Respimat) 20-100 mcg/actuation inhalerIndicatio ns:Chronic obstructive pulmonary disease, unspecified (CMS/HCC V24, CMS/HCC V28) Inhale 1 puff by mouth every 6 (six) hours if needed for wheezing. 1 each 5 5 06/02/20 26 Active sertraline (ZOLOFT) 25 mg tablet Take 2 tablets (50 mg total) by mouth 1 (one) time each day. 60 tablet 1 5 Active clotrimazole-bet amethasone (LOTRISONE) 1-0.05 % cream Apply twice a day on the rash for 7 days 45 g 3 5 Active atorvastatin (LIPITOR) 40 mg tablet TAKE ONE TABLET BY MOUTH EVERY DAY 90 tablet 3 4 06/01/20 25 Discontinu ed(Reorder ) ipratropium-albu teroL (Combivent Respimat) 20-100 mcg/actuation inhalerIndicatio ns:Chronic obstructive pulmonary disease, unspecified (CMS/HCC V24, CMS/HCC V28) Inhale 1 puff by mouth every 6 (six) hours if needed for wheezing. 1 each 5 5 06/01/20 25 Discontinu ed(Reorder ) sertraline (ZOLOFT) 25 mg tablet Take 1 tablet (25 mg total) by mouth 1 (one) time each day. 60 tablet 1 5 06/01/20 25 Discontinu ed(Reorder ) sertraline (ZOLOFT) 25 mg tablet Take 1 tablet (25 mg total) by mouth 1 (one) time each day. 60 tablet 1 5 06/02/20 25 Discontinu ed(Reorder ) Active Problems Problem Noted Date Diagnosed Date Shortness of breath 12/17/2021 Overview (08/20/2023): Last Assessment & Plan: Mostly related to his pulmonary condition. Stress test was unremarkable and echocardiogram showed no obvious pathology. Assessment & Plan (04/10/2025 9:16 AM EDT): Patient has a chronic shortness of breath that he feels has gradually been worsening over the years. This is likely related to COPD and pulmonary fibrosis. He is not experiencing chest discomfort. He had a normal pharmacological nuclear stress test in February 2023. Will update echocardiogram to reassess cardiac function and structures. If echocardiogram reveals reduced function or new regional wall motion abnormalities can consider updating stress testing. Heart block 06/25/2021 Overview (08/20/2023): Last Assessment & Plan: Status post pacemaker implantation. Assessment & Plan (04/10/2025 9:18 AM EDT): S/p placement of a [employer] dual-chamber pacemaker in December 2018. Most recent remote device interrogation showed normal device function, no new alerts, 44% atrial paced and 12% RV paced, current battery life 4.17 years. EKG done in the office today shows an atrial paced rhythm with a prolonged AV conduction and a rate of 60 bpm. Will continue to monitor with in office and remote device interrogations. Dizziness 06/25/2021 Overview (08/20/2023): Last Assessment & Plan: Probably related to dehydration. Being discussed about cutting down coffee intake. Assessment & Plan (04/10/2025 9:15 AM EDT): Intermittent episodes of dizziness while ambulating and changing positions probably related to limited fluid intake. I encouraged him to increase oral hydration as well as wear compression socks. Asked him to contact the office if symptoms did not improve with these lifestyle modifications. Non-recurrent unilateral ing uinal hernia without obstruction or gangrene 03/14/2020 Testicular pain, right 03/14/2020 Pure hypercholesterolemia 01/12/2019 Assessment & Plan (04/10/2025 9:17 AM EDT): Last lipid panel reviewed and under excellent control with an LDL of 24. Continue atorvastatin as prescribed. Stage 2 moderate COPD by GOLD classification Assessment & Plan (12/02/2024 12:12 PM EDT): Orders: CBC and differential; Future Comprehensive metabolic panel; Future Lipid panel with reflex to direct LDL; Future Thyroid stimulating hormone; Future Hypoxia 04/16/2018 Former smoker 04/16/2018 Pulmonary fibrosis 04/16/2018 ILD (interstitial lung disease) 04/16/2018 Paraseptal emphysema 04/16/2018 Centrilobular emphysema 04/16/2018 Cataract 03/03/2017 Seasonal allergic rhinitis 01/12/2017 Hypothyroidism 11/20/2016 Assessment & Plan (12/02/2024 12:12 PM EDT): Orders: CBC and differential; Future Comprehensive metabolic panel; Future Lipid panel with reflex to direct LDL; Future Thyroid stimulating hormone; Future Major depression in remission 11/20/2016 Assessment & Plan (12/02/2024 12:12 PM EDT): Orders: CBC and differential; Future Comprehensive metabolic panel; Future Lipid panel with reflex to direct LDL; Future Thyroid stimulating hormone; Future Osteoarthritis 11/20/2016 GERD (gastroesophageal reflux disease) 7 Encounters Date Type Department Care Team Description 06/08/2025 11:30 AM EST Office Visit Vascular Surgery - [place] [address] [facility] [address] [place] [phone] Vania Vail PA Varicose veins of bilateral lower extremities with pain (Primary Dx); Claudication (CMS/HCC V24) 06/07/2025 9:45 AM EST Office Visit Internal Medicine - [place] [address] [facility] [address] [place] [phone] Gaurav Valadez MD Acquired hypothyroidism (Primary Dx); Stage 2 moderate COPD by GOLD classification (CMS/HCC V24, CMS/HCC V28); Major depression in remission (CMS/HCC V24); Hypercholesterolemia; Need for prophylactic vaccination and inoculation against influenza 05/16/2025 8:30 AM EST Ancillary Procedure [facility] - [address] [place] [address] Varicose veins of bilateral lower extremities with pain 05/14/2025 6:20 PM EST Ancillary Procedure [facility] - [address] [place] [address] 2025 1:30 PM EST Ancillary Procedure [facility] - [address] [place] [address] Encounter for adjustment or management of cardiac device 04/10/2025 8:40 AM EDT Office Visit [facility] [address] [place] [address] Elsie Keller NP Heart block (Primary Dx); Pure hypercholesterolemia; Shortness of breath; Dizziness 03/15/2025 Telephone Pulmonology - [place] [address] [facility] [address] [place] [phone] Wilder Perea MD 03/13/2025 Telephone Pulmonology - [place] [address] [facility] [address] [place] [phone] Wilder Perea MD from Last 3 Months Immunizations Immunization Administration Dates Next Due Influenza trivalent, 0.5mL ( Fluad) 65yo and older 06/07/2025 Influenza trivalent, 0.5mL ( Fluzone High-dose) 65yo and older 04/21/2023,05/21/2022,04/11/2020,05/23,04/13/2018 Pfizer SARS-CoV-2 COVID-19, mRNA, LNP-S, preservative free 08/30/2020,08/09/2020 Pneumococcal polysaccharide 23 valent (Pneumovax 23) 2yo and older 01/12/2018 Surgical History Surgery Date Site/Laterality Comments COLONOSCOPY PROCEDURE: HISTORICAL COLONOSCOPY Medical History Medical History Date Comments GERD (gastroesophageal reflu x disease) 07/29/2016 DX:GERD (gastroesophageal re flux disease) Cataract 03/03/2017 DX:Cataract Centrilobular emphysema (CMS /[facility] V24, CMS/[facility] V28) 04/16/2018 DX:Centrilobular emphysema ( [facility]) Former smoker 04/16/2018 DX:Former smoker Hypothyroidism 11/20/2016 DX:Hypothyroidis m Hypoxia 04/16/2018 DX:Hypoxia ILD (interstitial lung disea se) [place] [place] [facility] [place] 04/16/2018 DX:ILD (interstitial lung d isease) ([facility]) Major depression in remissio n ([facility] V24) 11/20/2016 DX:Major depression in remis arcelia ([facility]) Osteoarthritis 11/20/2016 DX:Osteoarthriti s Paraseptal emphysema ([facility]/ C V24, [facility] V28) 04/16/2018 DX:Paraseptal emphysema ([facility] ) Pulmonary fibrosis ([facility] V24, [facility] [place]) 04/16/2018 DX:Pulmonary fibrosis ([facility]) Seasonal allergic rhinitis 01/12/2017 DX:Se asonal allergic rhinitis Stage 2 moderate COPD by GOL D classification ([facility] [place], [facility] [place]) 04/16/2018 DX:Stage 2 moderate COPD by GOLD classification ([facility]) Passage of loose stools DX:Passa ge of loose stools Fecal urgency DX:Fecal urgency Pacemaker DX:Pacemaker Passage of loose stools DX:Passa ge of loose stools Microscopic colitis DX:Microscop ic colitis Social History Tobacco Use Types Packs/Day Years Used Date Smoking Tobacco: Former Cigarettes 1 Q uit: 06/29/1969 Smokeless Tobacco: Never Tobacco Cessation:Counseling Given: Not Answered Alcohol Use Standard Drinks/Week Comments Yes 0 (1 standard drink = 0.6 oz pur e alcohol) occasional Sex and Gender Information Value Date Recorded Sex Assigned at Male 02/08/2023 8:46 PM EDT Legal Sex Male 1:26 PM EST Gender Identity Male 02/08/2023 8:46 PM EDT Sexual Orientation Straight 09/21/2024 9: 56 AM EDT Last Filed Vital Signs Vital Sign Reading Time Taken Comments Blood Pressure 120/80 06/08/2025 11:18 AM EST Pulse 92 06/08/2025 11:18 AM EST Temperature 35.8 C (96.5 F) 06/07/2025 9:40 AM EST Respiratory Rate 16 06/08/2025 11:18 AM EST Oxygen Saturation 95% 06/07/2025 9:40 AM EST Inhaled Oxygen Concentration - - Weight 82.6 kg (182 lb) 06/08/2025 11:18 AM EST Height 162.6 cm (5' 4 ) 06/08/2025 11:18 AM EST Body Mass Index 31.24 06/08/2025 11:18 AM EST Plan of Treatment Upcoming Encounters Date Type Department Care Team (Late st Contact Info) Description 07/27/2025 9:30 AM EST Office Visit Pulmonology - [place] [address] [facility] [address] [place] [address] Wilder Perea MD [address] [place] [phone] 08/17/2025 8:00 AM EST Ancillary Procedure [facility] - [facility] [address] [facility] [address] [place] [address] 12/06/2025 9:30 AM EDT Office Visit Internal Medicine - [place] [address] [facility] [address] [place] [address] Gaurav Valadez MD [address] [facility] [address] [place] [address] 12/07/2025 10:00 AM EDT Office Visit Vascular Surgery - [place] [address] [facility] [address] [place] [address] Vania Vail PA [address] [place] [phone] 05/03/2026 11:00 AM EST Ancillary Procedure [facility] - [facility] [address] [facility] [address] [place] [phone] Health Maintenance Due Date Last Done Comments DTaP,Tdap,and Td Vaccines (1 - Tdap) 1964 RSV Immunization Adult Patients (1 - 1-dose 75+ series) 2018 Social Influencers of Health Screening 06/06/2022 COVID-19 Vaccine ( season) 2025 03/27/2021, 08/30/2020, 08/09/2020 Falls Risk Assessment 12/02/2025 12/02/2024 Medicare Annual Wellness Visit 12/02/2025 12/02/2024 Cholesterol Screening (Lipid Panel) 12/02/2029 12/02/2024, 10/21/2023 Pneumococcal Vaccine: 50+ Years Completed 10/23/2022, 01/12/2018 Zoster Vaccines Completed 10/23/2022, 08/22/2022 Depression Screening Completed 12/02/2024 Influenza Vaccine Completed 06/07/2025, , 04/21/2023, Additional history exists HIB Vaccines Aged Out No longer eligi [...] on patient's age to complete this topic MMR Vaccines Aged Out No longer eligi ble based on patient's age to complete this topic Meningococcal ACWY Vaccine Aged Out N o longer eligible based on patient's age to complete this topic Meningococcal B Vaccine Aged Out No l onger eligible based on patient's age to complete this topic RSV Immunization Patients Under 20 months Aged Out No longer eligible based on patient's age to complete this topic Varicella Vaccines Aged Out No longer eligible based on patient's age to complete this topic Medical Devices Implanted Type Area Shop Fitter Device Identifier Shelf Expiration Date Model / Serial / Lot Abbt-Stju 2272 Assurity Mri(Tm) [id number] Implanted:05/2019 (Quantity not on file) Cardiac Pacemaker [facility] [employer] 2272 ASSURITY MRI(TM) / [id number] / Abbt-Stju Assurity Mri [id number] Implanted:05/2019 (Quantity not on file) Cardiac Pacemaker [facility] [employer] ASS[employer]ITY MRI 2272 / [id number] / Procedures Procedure Name Priority Date/Time Associated Diagnosis Comments VAS US DUPLEX LOWER EXT VENOUS BILAT Routine 05/16/2025 8:46 AM EST Varicose veins of bilateral lower extremities with pain CARDIAC DEVICE CHECK- REMOTE- MURJ Routine 05/14/2025 6:17 PM EST CARDIAC DEVICE CHECK- IN CLINIC- MURJ Routine 2025 3:29 PM EST Encounter for adjustment or management of cardiac device ECG 12-LEAD Routine 04/10/2025 9:19 AM EDT Heart block LIPID PANEL WITH REFLEX TO DIRECT LDL Routine 12/02/2024 11:51 AM EDT Stage 2 moderate COPD by GOLD classification (CMS/HCC V24, CMS/HCC V28) Acquired hypothyroidism Major depression in remission (CMS/HCC V24) from Last 3 Months or Most Recently Relevant to Health Maintenance Results * Vascular US duplex lower extremity venous bilateral (05/16/2025 8:46 AM EST) Left fem mid reflux 511 ms CV VAS LAB Left GSK giovanna 0.21 cm CV VAS LAB Left GSDC giovanna 0.15 cm CV VAS LAB Left GSMT giovanna 0.29 cm CV VAS LAB Left GSPC giovanna 0.13 cm CV VAS LAB Left GSPT giovanna 0.40 cm CV VAS LAB Left pop reflux 561 ms CV VAS LAB Left SFJ Diameter 0.44 cm CV VAS LAB Right GSK giovanna 0.30 cm CV VAS LAB Right GSDC giovanna 0.18 cm CV VAS LAB Right GSMT giovanna 0.37 cm CV VAS LAB Right GSPC giovanna 0.23 cm CV VAS LAB Right GSPT giovanna 0.38 cm CV VAS LAB Right pop reflux 578 ms CV VAS LAB Right SFJ Diameter 0.53 cm CV VAS LAB Right SSMC giovanna 0.10 cm CV VAS LAB Right SSPC giovanna 0.13 cm CV VAS LAB Right SFJ Reflux Time 4,378 ms CV VAS LAB Right GSPT reflux 4,361 ms CV VAS LAB Right GSMT reflux 4,395 ms CV VAS LAB Right GSK reflux 322 ms CV VAS LAB Left GSDC reflux 211 ms CV VAS LAB Anatomical Region Laterality Modality Vascular, Abdomen Ultrasound Narrative 05/21/2025 9:25 PM EST RIGHT: 1. There is no evidence of [...] in the femoral vein and popliteal vein. Right Lower Venous No evidence of deep [...] thigh= 4280ms 0.26cm diameter lower thigh= 4330ms Herbicide Sprayer Details A gutierrez scale, color and doppler analysis ultrasound was performed. During the study longitudinal and transverse views were obtained. Pulsed wave doppler was performed. us Anastasia Brito MD CV VASCULAR PROCEDURES Fi nal Result * Cardiac device check - Remote- MURJ (05/14/2025 6:17 PM EST) Date Time Interrogation Session [id number] CV DEVICE CHECK Type Interrogation Session Remote Scheduled CV DEVICE CHECK Implantable Pulse Generator Shop Fitter [employer] CV DEVICE CHECK Implantable Pulse Generator Type IPG CV DEVICE CHECK Implantable Pulse Generator Model 2272 Assurity MRI(TM) CV DEVICE CHECK Implantable Pulse Generator Serial Number [id number] CV DEVICE CHECK Implantable Pulse Generator Implant Date 20190107 CV DEVICE CHECK Battery Remaining Percentage 38.00 CV DEVICE CHECK Battery Remaining Longevity 47.0 CV DEVICE CHECK Battery Voltage 2.960 CV D EVICE CHECK Battery FELTING MACHINE OPERATOR Trigger 2.600 CV DEVICE CHECK Battery Status Middle of Service CV DEVICE CHECK Rg Statistic RA Percent Paced 46.00 CV DEVICE CHECK Rg Statistic RV Percent Paced 4.60 CV DEVICE CHECK Atrial Tachy Statistic AT/AF [place] Percent 0.00 CV DEVICE CHECK Lead Channel Sensing Intrinsic Amplitude 5.000 CV DEVICE CHECK Lead Channel Setting Sensing Sensitivity 0.50 CV DEVICE CHECK Lead Channel Impedance Value 430 CV DEVICE CHECK Lead Channel Pacing Threshold Amplitude 0.625 CV DEVICE CHECK Lead Channel Pacing Threshold Pulse Width 0.5 CV DEVICE CHECK Lead Channel RA Pacing Threshold Date 2025-05-11 CV DEVICE CHECK Lead Channel Setting Pacing Amplitude 1.625 CV DEVICE CHECK Lead Channel Setting Pacing Pulse Width 0.5 CV DEVICE CHECK Lead Channel Sensing Intrinsic Amplitude 12.000 CV DEVICE CHECK Lead Channel Setting Sensing Sensitivity 2.00 CV DEVICE CHECK Lead Channel Impedance Value 400 CV DEVICE CHECK Lead Channel Pacing Threshold Amplitude 0.625 CV DEVICE CHECK Lead Channel Pacing Threshold Pulse Width 0.5 CV DEVICE CHECK Lead Channel RV Pacing Threshold Date 2025-05-11 CV DEVICE CHECK Lead Channel Setting Pacing Amplitude 0.875 CV DEVICE CHECK Lead Channel Setting Pacing Pulse Width 0.5 CV DEVICE CHECK Rg Setting Mode (NBG Code) DDDR CV DEVICE CHECK Rg Setting Lower Rate Limit 60 CV DEVICE CHECK Rg Setting AT Mode Switch Rate 180 CV DEVICE CHECK Rg Setting Maximum Tracking Rate 130 CV DEVICE CHECK Rg Setting Maximum Sensor Rate 130 CV DEVICE CHECK Rg Setting PAV Delay 250 CV DEVICE CHECK Rg Setting CAROL Delay 250 CV DEVICE CHECK Date of Service 2025-05-22 CV DEVICE CHECK Anatomical Region Laterality Modality Device Interroga tion 05/11/2025 2:00 AM EST Impressions 05/14/2025 6:09 PM EST Normal Remote: No Events * Normal Device Function * Alerts or events: None * Battery: Battery is at 38%, 3.92 yrs * Sensing, impedance and thresholds reviewed * Programmed parameters reviewed * Presenting rhythm reviewed * Heart Rate Histograms reviewed * No significant changes noted Narrative Procedure Note Rachael Newton MD - 05/14/2025 IMPRESSION: Normal Remote: No Events * Normal Device Function * Alerts or events: None * Battery: Battery is at 38%, 3.92 yrs * Sensing, impedance and thresholds reviewed * Programmed parameters reviewed * Presenting rhythm reviewed * Heart Rate Histograms reviewed * No significant changes noted Rachael Newton MD CV IMPLANTABLE CARDIAC DEV ICE PROCEDURES Final Result * CARDIAC DEVICE CHECK- IN CLINIC- [facility] (2025 3:29 PM EST) Date Time Interrogation Session [id number] CV DEVICE CHECK Implantable Pulse Generator Shop Fitter [employer] CV DEVICE CHECK Implantable Pulse Generator Type IPG CV DEVICE CHECK Implantable Pulse Generator Model Assurity MRI 2272 CV DEVICE CHECK Implantable Pulse Generator Serial Number [id number] CV DEVICE CHECK Implantable Pulse Generator Implant Date 20190107 CV DEVICE CHECK Battery Voltage 2.960 CV D EVICE CHECK Battery Status Middle of Service CV DEVICE CHECK Rg Statistic RA Percent Paced 51.00 CV DEVICE CHECK Rg Statistic RV Percent Paced 17.00 CV DEVICE CHECK Lead Channel Sensing Intrinsic Amplitude 5.000 CV DEVICE CHECK Lead Channel Setting Sensing Sensitivity 0.50 CV DEVICE CHECK Lead Channel Impedance Value 400 CV DEVICE CHECK Lead Channel Pacing Threshold Amplitude 0.750 CV DEVICE CHECK Lead Channel Pacing Threshold Pulse Width 0.5 CV DEVICE CHECK Lead Channel RA Pacing Threshold Date 2025 CV DEVICE CHECK Lead Channel Setting Pacing Amplitude 1.630 CV DEVICE CHECK Lead Channel Setting Pacing Pulse Width 0.5 CV DEVICE CHECK Lead Channel Sensing Intrinsic Amplitude 11.900 CV DEVICE CHECK Lead Channel Setting Sensing Sensitivity 2.00 CV DEVICE CHECK Lead Channel Impedance Value 400 CV DEVICE CHECK Lead Channel Pacing Threshold Amplitude 0.750 CV DEVICE CHECK Lead Channel Pacing Threshold Pulse Width 0.5 CV DEVICE CHECK Lead Channel RV Pacing Threshold Date 2025 CV DEVICE CHECK Lead Channel Setting Pacing Amplitude 0.880 CV DEVICE CHECK Lead Channel Setting Pacing Pulse Width 0.5 CV DEVICE CHECK Rg Setting Mode (NBG Code) DDDR CV DEVICE CHECK Rg Setting Lower Rate Limit 60 CV DEVICE CHECK Rg Setting AT Mode Switch Rate 180 CV DEVICE CHECK Rg Setting Maximum Tracking Rate 130 CV DEVICE CHECK Rg Setting Maximum Sensor Rate 130 CV DEVICE CHECK Rg Setting PAV Delay 250 CV DEVICE CHECK Rg Setting CAROL Delay 250 CV DEVICE CHECK Date of Service 2026-02-17 CV DEVICE CHECK Anatomical Region Laterality Modality Device Interroga tion 2025 Impressions 05/03/2025 2:47 PM EST Normal In-Office: No Events * Normal Device Function * Alerts or events: None * Battery: MOS, 4.00 yrs * Sensing, impedance and thresholds reviewed and tested * Presenting Rhythm: -VS 80s * Heart Rate Histograms reviewed * Pacing and Detection Parameters were evaluated Narrative Procedure Note Rachael Newton MD - 05/03/2025 IMPRESSION: Normal In-Office: No Events * Normal Device Function * Alerts or events: None * Battery: MOS, 4.00 yrs * Sensing, impedance and thresholds reviewed and tested * Presenting Rhythm: -VS 80s * Heart Rate Histograms reviewed * Pacing and Detection Parameters were evaluated Order Referral Cardiovascular CV IMPLANTABLE CAR DIAC DEVICE PROCEDURES Final Result * ECG 12 lead (04/10/2025 9:19 AM EDT) Ventricular Rate ECG 60 BPM GEMUSE Atrial Rate 60 BPM GEMUSE P-R Interval 274 ms GEMUSE QRS Duration 128 ms GEMUSE Q-T Interval 416 ms GEMUSE QTc 416 ms GEMUSE P Wave [place] 18 degrees GEMUSE R [place] -23 degrees GEMUSE T [place] 16 degrees GEMUSE ECG Interpretation Atrial-paced rhythm with prolonged AV conduction Right bundle branch block Abnormal ECG When compared with ECG of 15-OCT-2018 16:55, Electronic atrial pacemaker has replaced Sinus rhythm Confirmed by Jose HOROWITZ, RONNY ([id number]) on 04/10/2025 11:22:59 AM GEMUSE 04/10/2025 8:37 AM EDT 04/10/2025 11:22 AM EDT Elsie Keller CHILD GUIDANCE COUNSELOR ECG ORDERABLES Edited Result - Final GEMUSE * Lipid panel with reflex to direct LDL (12/02/2024 11:51 AM EDT) Cholesterol 122 0 - 200 mg/dL LAB CHEMISTRY METHOD 12/02/2024 3:40 PM EDT [facility] Triglycerides 148 0 - 150 mg/dL LAB CHEMISTRY METHOD 12/02/2024 3:40 PM EDT [facility] HDL 68 >=40 mg/dL LAB CHEMISTRY METHOD 12/02/2024 3:40 PM EDT [facility] LDL Calculated 24 0 - 100 mg/dL LAB CHEMISTRY METHOD 12/02/2024 3:40 PM EDT [facility] VLDL Cholesterol Anthony 29.6 mg/dL LAB CHEMISTRY METHOD 12/02/2024 3:40 PM EDT [facility] Non HDL Chol. (LDL+VLDL) 54 <145 mg/dL LAB CHEMISTRY METHOD 12/02/2024 3:40 PM EDT [facility] Chol/HDL Ratio 1.8 0.0 - 4.4 LAB CHEMISTRY METHOD 12/02/2024 3:40 PM EDT [facility] Blood Venous blood specimen / Unknown Venipuncture / Unknown 12/02/2024 11:51 AM EDT 12/02/2024 11:51 AM EDT us Gaurav Valadez MD LAB BLOOD ORDERABLES Final Resul t [facility] [address] [place] [address], [place] [phone] from Last 3 Months or Most Recently Relevant to Health Maintenance Insurance [employer] Care Teams Product Expert Relationship Specialty Start Date End Date Gaurav Valadez MD [address] [place] [address] [address] [place] [address] PCP - General Internal Medicine 04/16/18
--- OUTSIDE RECORDS SUMMARY | 2025-06-10 21:32 | XMS_ITS | Clinical Summary ---
Author Organization [facility] Prior to 11/26/[address] [place] [id number] Care Team Providers Care Charting Clerk Name Role Phone Dano Paez MD Primary Care Provider [phone] Allergies No known active allergies Social History Tobacco Use Types Packs/Day Years Used Date Smoking Tobacco: Former Cigarettes 1 Q uit: 06/29/1969 Smokeless Tobacco: Never Alcohol Use Standard Drinks/Week Comments Not Currently 0 (1 standard drink = 0.6 oz pur e alcohol) Sex and Gender Information Value Date Recorded Sex Assigned at Not on file Gender Identity Not on file Sexual Orientation Not on file Job Start Date Occupation Industry Not on file Not on file Not on file Last Filed Vital Signs Vital Sign Reading Time Taken Comments Blood Pressure 110/60 10/15/2021 8:05 AM EDT Pulse 65 10/15/2021 8:05 AM EDT Temperature 36.4 C (97.5 F) 10/15/2021 8:05 AM EDT Respiratory Rate - - Oxygen Saturation 97% 10/15/2021 8:05 AM EDT Inhaled Oxygen Concentration - - Weight 90.7 kg (200 lb) 10/11/2021 2:22 PM EDT Height 157.5 cm (5' 2 ) 10/11/2021 2:22 PM EDT Body Mass Index 36.58 10/11/2021 2:22 PM EDT Plan of Treatment Health Maintenance Due Date Last Done Comments Depression Screening 1955 Preventative Health Evaluation 1961 DTap / Tdap / Td (1 - Tdap) 1962 Shingrix-Zoster Vaccine (1 o f 2) 1993 Fall Risk Assessment 2008 RSV Adult > 60+ Yrs or (1 - 1-dose 75+ series) 2018 Pneumococcal Vaccine (2 of 2 - PCV) 01/12/2019 01/12/2018 COVID-19 Vaccine (3 - 2024-2 6 season) 2025 08/30/2020, 08/09/2020 Influenza Vaccine (#1) 2025 , 05/23/2019, 04/13/2018 Hepatitis B Vaccines Aged Out No long er eligible based on patient's age to complete this topic RSV Ped < 20 months Aged Out No longe r eligible based on patient's age to complete this topic Care Teams Charting Clerk Relationship Specialty Start Date End Date Dano Paez MD PCP - General Internal Medicine 09/12/16
--- OUTSIDE RECORDS SUMMARY | 2025-06-10 21:32 | XMS_ITS | Encounter Summary ---
Author Organization [employer] Address [address] [place] [address] [address] [place] [address] Care Team Providers Care Food And Beverage Coordinator Name Role Phone Unavailable Primary Care Provider Unavailabl e Encounter Details Date Type Department Care Team (Latest Contact Info) Description 12/23/2021 Abstract [facility] CONVERSIONS Dental, Provider, DDS Social History Tobacco Use Types Packs/Day Years Used Date Smoking Tobacco: Never Assessed Sex and Gender Information Value Date Recorded Sex Assigned at Male 04/28/2022 10:25 AM EDT Legal Sex Male 10:25 AM EDT Gender Identity Male 04/28/2022 10:25 AM EDT Sexual Orientation Straight 04/28/2022 10 :25 AM EDT documented as of this encounter Plan of Treatment Not on file documented as of this encounter Visit Diagnoses Not on filedocumented in this encounter
[2025-06-10 21:34] LABS: Glucose, Whole Blood 86 mg/dL (60-115)
[2025-06-10 22:38] LABS: Thyroid Stimulating Hormone 0.61 uIU/mL (0.32-4.0)
[2025-06-10 22:51] LABS: Appearance Urine Cloudy; Glucose Urine UA Negative (Negative); PH 5.5 (5.0-9.0); Specific Gravity - Urine 1.025 (1.005-1.025)
[2025-06-10 23:51] VITALS: BP 145/65; PULSE 94; RESP 19; TEMP 37.4; O2SAT 92
[2025-06-11 00:46] VITALS: BP 145/65; PULSE 94; RESP 19; TEMP 37.4; O2SAT 92
== END 2025-06-11 00:49 | disposition home or self-care (01) ==
PROVIDERS: Physician Assistant Medical; Emergency Provider Emergency Medicine Emergency Medical Services; PCP Internal Medicine
DX: U07.1 COVID-19 (principal); E86.0 Dehydration; R53.1 Weakness; R05.9 Cough, unspecified; R53.83 Other fatigue; I44.0 Atrioventricular block, first degree; I45.10 Unspecified right bundle-branch block
CPT/HCPCS: 71045; 80053; 81003; 82947; 83690; 83735; 84443; 85025; 87637; 93005; 96360; 99284; 99285

== ENCOUNTER → 2025-06-10 17:21 | Outpatient (BNV) | payer MEDICARE, SELFPAY | PROVIDERS: Emergency Provider Emergency Medicine Emergency Medical Services; PCP Internal Medicine; Visit Provider Internal Medicine Cardiovascular Disease | DX: I44.0 Atrioventricular block, first degree (principal); I45.2 Bifascicular block | CPT/HCPCS: 93010 ==

== ENCOUNTER → 2025-06-10 17:21 | Outpatient (BNV) | payer MEDICARE, SELFPAY | PROVIDERS: PCP Internal Medicine; Visit Provider Radiology Diagnostic Radiology | DX: R05.9 Cough, unspecified (principal); R53.1 Weakness | CPT/HCPCS: 71045 ==